=== PATIENT | female | born 1945 | race Caucasian/White ===

== ENCOUNTER 2018-01-31 14:01 | Emergency (ER) | payer OTHER ==
[~2018-01-31] VITALS: Ht 154.9 cm
[2018-01-31] MEDS ORDERED: TIROSINT25 MCG (14:11)
== END 2018-01-31 18:04 | disposition home or self-care (01) ==
LOC: ER 14:01 → EMR PED 14:01 → ER 14:43
DX: K29.70 Gastritis, unspecified, without bleeding (principal)

== ENCOUNTER 2019-11-13 21:29 | Emergency (ER) | payer OTHER ==
[~2019-11-13] VITALS: Ht 157.5 cm; Wt 81.6 kg
[~2019-11-13 21:29] MED LIST: TIROSINT25 MCG
[2019-11-14] MEDS ORDERED: PROTONIX40 MG PO (05:16)
[2019-11-14] MEDS ORDERED: PEPCID40 MG PO (05:16)
[2019-11-14] MEDS ORDERED: ZOFRAN4 MG PO (05:16)
== END 2019-11-14 05:12 | disposition home or self-care (01) ==
LOC: ER 21:29
DX: K29.60 Other gastritis without bleeding (principal)

== ENCOUNTER 2019-12-13 17:29 | Inpatient (IN) | payer OTHER ==
[~2019-12-13] VITALS: Ht 157.5 cm; Wt 77.1 kg
[~2019-12-13 17:29] MED LIST changes: +PEPCID40 MG PO; +PROTONIX40 MG PO; +ZOFRAN4 MG PO
[2019-12-13] MEDS ORDERED: NEURONTIN300 MG (17:40)
[2019-12-13] MEDS ORDERED: PROTONIX20 MG (17:41)
== END 2019-12-19 10:29 | disposition home or self-care (01) | DRG 416 ==
LOC: ER 17:29 → MEDI 23:03
PROVIDERS: Surgery; ADMIT Internal Medicine
PROC: 0FJ44ZZ Inspection of Gallbladder, Percutaneous Endoscopic Approach (ICD-10-PCS; 2019-12-15)
PROC: 0FT40ZZ Resection of Gallbladder, Open Approach (ICD-10-PCS; principal; 2019-12-15 13:30)
DX: K80.00 Calculus of gallbladder with acute cholecystitis without obstruction (principal); I10 Essential (primary) hypertension; K29.60 Other gastritis without bleeding